=== PATIENT | male | born 1935 | race Caucasian/White ===

== ENCOUNTER 2024-08-28 17:11 | Emergency (ER) | payer OTHER ==
[~2024-08-28] VITALS: Ht 170.2 cm; Wt 69.9 kg
[~2024-08-28 17:11] MED LIST: FUTURO RESTORI1 EACH MISC; HYDROCHLOROTHIA25 MG PO; POTASSIUM CHLO10 MEQ PO
[2024-08-28] MEDS ORDERED: MAGNESIUM250 M2 PO (17:33)
[2024-08-28 18:30] VITALS: BP 139/86
== END 2024-08-28 18:30 | disposition home or self-care (01) ==
LOC: ED 17:11
DX: M79.89 Other specified soft tissue disorders (principal); M25.561 Pain in right knee; F17.200 Nicotine dependence, unspecified, uncomplicated; Z79.899 Other long term (current) drug therapy
CPT/HCPCS: 93971; 99283-25